=== PATIENT | female | born 1975 | race Caucasian/White ===

== ENCOUNTER → 2017-02-24 | Outpatient (REF) | payer OTHER ==
[~2017-02-24] MED LIST: ALBUTEROL INH; AMBI12.52 PO; ATARAX OR; ATIV2TAB PO; BOTO200I INJ; CELEBRE200 PO; CITRTAB15 PO; CLAR10CA3 PO; COLE1TAB PO; Cipro; DEPA500T2 PO; DRIS50002 PO; DRISDOL PO; DULO30CA PO; EFFE150C PO; FLAG500T; FLON0.05; IBUP600T OR; IMIT6KIT2 SC; INDE1CAP6 PO; LEVO75TA4 PO; METH750T OR; MOME50SP; MULTCAP PO; NAPROSY250 PO; NEUR600T PO; OMEP40CA2 PO; PERC7.5T3 PO; PRIL20CA OR; PROA1AER INH; PROBCAP4 PO; PROV100T4 PO; SEASTAB PO; SING10TA32 PO; SOLARAZE TOPICAL; SYNT50TA OR; TRAZ100T4 PO; VICO5TAB; VICO5TAB OR; VIT D 2000 PO; ZANA4TAB PO; ZOFR20TA PO; ZOLO50TA; ZOLO50TA OR; ZOLOFT50 PO; birth control
== END ==
LOC: M SFHCLERA 17:02
PROVIDERS: ATTEND Nurse Practitioner Family
DX: J02.9 Acute pharyngitis, unspecified (principal)

== ENCOUNTER 2017-06-21 16:01 | Emergency (ER) | payer OTHER ==
[~2017-06-21] VITALS: Ht 160 cm; Wt 92.7 kg
[~2017-06-21 16:01] MED LIST changes: +PERC7.5T11 PO; -PERC7.5T3 PO; -PROA1AER INH; +PROAAER10 INH; +PROV100T25 PO; -PROV100T4 PO; +TRAZ-136 PO; -TRAZ100T4 PO
[2017-06-21] MEDS ORDERED: CLEO300C2 PO (16:22)
[2017-06-21] MEDS ORDERED: CIPR500T3 PO (16:22)
[2017-06-21] MEDS ORDERED: PRED20TA PO (18:13)
[2017-06-21] MEDS ORDERED: predniSONE 20 MG TAB PO ONE (18:15)
[2017-06-21 18:26] VITALS: BP 120/62
== END 2017-06-21 18:31 | disposition home or self-care (01) ==
LOC: M ED 16:01
DX: T78.40XA Allergy, unspecified, initial encounter (principal); M79.7 Fibromyalgia; K21.9 Gastro-esophageal reflux disease without esophagitis; E03.9 Hypothyroidism, unspecified; G47.00 Insomnia, unspecified; Z87.891 Personal history of nicotine dependence

== ENCOUNTER 2018-01-25 17:22 | Emergency (ER) | payer OTHER ==
[2018-01-25 19:00] LABS: KETONE, URINE AUTO RFX NEGATIVE (NEGATIVE); LEUKOCYTE ESTERASE UR AUTO RFX NEGATIVE (NEGATIVE); MUCUS, URINE RFX SMALL (NEGATIVE); NITRITE, URINE AUTO RFX NEGATIVE (NEGATIVE); RBC, URINE AUTO RFX 2 /HPF (0-3); SPECIFIC GRAVITY UR AUTO RFX 1.025 (1.002-1.035); SQUAM EPITHELIAL CELL UR AURFX 1 /HPF (0-6); WBC, URINE AUTO RFX 5 /HPF (0-3)
[2018-01-25] MEDS: ALBUTEROL SULFATE 2.5 MG/0.5 ML INH NEB SOLN INH (20:04)
== END 2018-01-25 21:50 | disposition home or self-care (01) ==
LOC: M ED 17:22
DX: J20.9 Acute bronchitis, unspecified (principal); R10.13 Epigastric pain; R30.0 Dysuria; Z79.899 Other long term (current) drug therapy; Z88.0 Allergy status to penicillin; Z88.2 Allergy status to sulfonamides; Z88.8 Allergy status to other drugs, medicaments and biological substances; Z91.89 Other specified personal risk factors, not elsewhere classified
CPT/HCPCS: 74021

== ENCOUNTER 2018-02-13 19:03 | Emergency (ER) | payer OTHER ==
[2018-02-13 20:28] LABS: KETONE, URINE AUTO RFX TRACE mg/dL (NEGATIVE); LEUKOCYTE ESTERASE UR AUTO RFX NEGATIVE (NEGATIVE); MUCUS, URINE RFX SMALL (NEGATIVE); NITRITE, URINE AUTO RFX NEGATIVE (NEGATIVE); RBC, URINE AUTO RFX 3 /HPF (0-3); SPECIFIC GRAVITY UR AUTO RFX 1.019 (1.002-1.035); SQUAM EPITHELIAL CELL UR AURFX 0 /HPF (0-6); WBC, URINE AUTO RFX 2 /HPF (0-3)
[2018-02-13] MEDS ORDERED: ISOVUE-370 76% 100ML VIAL (Q9967) As Ordered (21:15)
[2018-02-13 21:16] LABS: BASO # 0.1 10^3/uL (0.0-0.2); BASO % 0.6 % (0.0-1.0); EOS # 0.4 10^3/uL (0.0-0.50); EOS % 3.7 % (0.0-3.0); HEMATOCRIT 38.5 % (36.0-47.0); IMMATURE GRANULOCYTE % 0.2 % (0-3.0); LYMPH # 3.9 10^3/uL (1.5-4.5); LYMPH % 34.7 % (24.0-44.0); MEAN CORPUSCULAR HEMOGLOBIN 30.4 pg (27.0-33.0); MEAN CORPUSCULAR HGB CONC 33.8 g/dl (32.0-36.5); MEAN CORPUSCULAR VOLUME 90.2 fl (80.0-96.0); MONO # 0.5 10^3/uL (0.0-0.8); MONO % 4.7 % (0.0-5.0); NEUTROPHILS # 6.2 10^3/uL (1.8-7.7); NEUTROPHILS % 56.1 % (36.0-66.0); PLATELET COUNT, AUTOMATED 310 10^3/uL (150-450); RED BLOOD COUNT 4.27 10^6/uL (4.00-5.40); RED CELL DISTRIBUTION WIDTH 14.9 % (11.5-14.5); WHITE BLOOD COUNT 11.1 10^3/uL (4.0-10.0)
[2018-02-13 21:31] LABS: INR 0.99; PROTHROMBIN TIME 13.2 SECONDS (12.4-14.5)
[2018-02-13 21:34] LABS: ALBUMIN 3.5 GM/DL (3.2-5.2); ALKALINE PHOSPHATASE 47 U/L (45-117); ALT/SGPT 35 U/L (12-78); AMYLASE 72 U/L (25-115); ANION GAP 11 MEQ/L (8-16); AST/SGOT 24 U/L (7-37); BILIRUBIN,DIRECT 0.1 MG/DL (0.0-0.2); BILIRUBIN,TOTAL 0.4 MG/DL (0.2-1.0); BLOOD UREA NITROGEN 11 MG/DL (7-18); CALCIUM LEVEL 9.2 MG/DL (8.5-10.1); CARBON DIOXIDE LEVEL 25 MEQ/L (21-32); CHLORIDE LEVEL 103 MEQ/L (98-107); CK-MB VALUE MASS 3.6 NG/ML (<3.6); CPK CREATINE PHOSPHOKINASE 123 U/L (26-192); CREATININE FOR GFR 0.63 MG/DL (0.55-1.30); GLOMERULAR FILTRATION RATE > 60.0 (>58); GLUCOSE, FASTING 80 MG/DL (70-100); LIPASE 225 U/L (73-393); MB/CK RELATIVE INDEX 2.92 (< OR =4); POTASSIUM SERUM 3.8 MEQ/L (3.5-5.1); SODIUM LEVEL 139 MEQ/L (136-145); TOTAL PROTEIN 7.4 GM/DL (6.4-8.2); TROPONIN I < 0.02 NG/ML (< 0.10)
[2018-02-13] MEDS: NS 1,000 ML IV (21:37)
[2018-02-13] MEDS: METOCLOPRAMIDE INJ 10MG/2ML VIAL (J2765) IV (21:39)
[2018-02-13] MEDS: MORPHINE 2 MG/ML 1ML SYRINGE (J2270) IV (21:39)
[2018-02-13 21:41] LABS: LACTIC ACID SEPSIS PROTOCOL 2.4 MMOL/L (0.4-2.0)
[2018-02-14] MEDS: GI COCKTAIL 50ML BTL(HYOSCYAMINE/MAALOX/LIDOCAINE VISCOUS)(1:3:1) PO (00:38)
[2018-02-14 01:01] LABS: LACTIC ACID SEPSIS PROTOCOL 1.5 MMOL/L (0.4-2.0)
[2018-02-14 01:02] LABS: CK-MB VALUE MASS 2.3 NG/ML (<3.6); CPK CREATINE PHOSPHOKINASE 92 U/L (26-192); TROPONIN I < 0.02 NG/ML (< 0.10)
== END 2018-02-14 02:06 | disposition home or self-care (01) ==
LOC: M ED 02-14 02:06
DX: K29.70 Gastritis, unspecified, without bleeding (principal); K21.9 Gastro-esophageal reflux disease without esophagitis; E03.9 Hypothyroidism, unspecified; M79.7 Fibromyalgia; G43.909 Migraine, unspecified, not intractable, without status migrainosus; R53.82 Chronic fatigue, unspecified; Z79.899 Other long term (current) drug therapy; Z79.890 Hormone replacement therapy; Z79.3 Long term (current) use of hormonal contraceptives; Z88.0 Allergy status to penicillin; Z88.2 Allergy status to sulfonamides; Z88.8 Allergy status to other drugs, medicaments and biological substances; Z87.891 Personal history of nicotine dependence
CPT/HCPCS: Q9967

== ENCOUNTER → 2018-03-25 | Outpatient (CLI) | payer OTHER ==
[2018-03-27 08:22] LABS: CERULOPLASMIN 62.4 mg/dL (19.0-39.0)
== END ==
LOC: M LAB 12:48
DX: E83.01 Wilson's disease (principal)
CPT/HCPCS: 82390

== ENCOUNTER → 2018-07-13 | Outpatient (REF) | payer OTHER | LOC: M LAB REF 16:30 | DX: R79.0 Abnormal level of blood mineral (principal) ==

== ENCOUNTER → 2018-08-19 | Outpatient (REF) | payer OTHER ==
[2018-08-19 17:58] LABS: GAMMA GLUTAMYLTRANSPEPTIDASE 34 U/L (5-55)
[2018-08-19 17:58] LABS: ALKALINE PHOSPHATASE 47 U/L (45-117); BILIRUBIN,DIRECT < 0.1 MG/DL (0.0-0.2); BILIRUBIN,TOTAL 0.4 MG/DL (0.2-1.0); IMMUNOGLOBULIN A 200 MG/DL (70-400); IMMUNOGLOBULIN G 707 MG/DL (681-1648); IMMUNOGLOBULIN M 82 MG/DL (40-230)
[2018-08-19 18:18] LABS: REASON FOR REVIEW RBC MORPHOLOGY; SLIDE REVIEW Report; SOURCE PERIPHERAL SMEAR
[2018-08-22 00:56] LABS: ANTI-SMOOTH MUSCLE ANTIBODY 4 Units (0-19)
[2018-08-22 00:56] LABS: BILE ACIDS FRACTIONATED 5.8 umol/L (4.7-24.5)
[2018-08-23 00:29] LABS: ANTI-MITOCHONDRIAL ANTIBODY 2.1 Units (0.0-20.0)
== END ==
LOC: M SFHCPLAZ 15:42
DX: L57.8 Other skin changes due to chronic exposure to nonionizing radiation (principal)
CPT/HCPCS: 82247

== ENCOUNTER → 2018-10-21 | Outpatient (CLI) | payer OTHER ==
[~2018-10-21] MED LIST changes: +CARA1TAB6 PO; +CHLOR50TA PO; +CIPR500T3 PO; +CLEO300C2 PO; +DICY10CA13 PO; -DRIS50002 PO; +DRIS50003 PO; -EFFE150C PO; +EFFE150C2 PO; +EQL50TAB4 PO; +ERYTOIN8 TOP; +FLAX100012 PO; +HYDR200T3 PO; +INDE160C5 PO; -INDE1CAP6 PO; +PRED20TA PO; +PROT1TAB2 PO; +SIME1CAP PO; -TRAZ-136 PO; +TRAZ-163 PO; -ZOFR20TA PO; +ZOFR4TAB16 PO; +[UNRECOGNIZED DRUG - CODE] PO; +plaquinel PO
[2018-10-21 15:13] LABS: ALBUMIN 3.6 GM/DL (3.2-5.2); BILIRUBIN,DIRECT 0.1 MG/DL (0.0-0.2); BILIRUBIN,TOTAL 0.4 MG/DL (0.2-1.0); C REACTIVE PROTEIN QUANTITATIV 0.65 MG/DL (0.00-0.30); TOTAL PROTEIN 7.1 GM/DL (6.4-8.2)
== END ==
LOC: M LAB 14:02
PROVIDERS: ATTEND Internal Medicine Gastroenterology
DX: R74.8 Abnormal levels of other serum enzymes (principal)

== ENCOUNTER 2018-11-25 18:45 | Emergency (ER) | payer OTHER ==
[~2018-11-25] VITALS: Ht 160 cm; Wt 96.4 kg
[2018-11-25] MEDS ORDERED: LIDO1CRE2 TOP (21:13)
[2018-11-25 21:19] VITALS: BP 131/87
[2018-11-25] MEDS ORDERED: PERC5TAB12 PO (22:11)
[2018-11-25] MEDS ORDERED: OXYCODONE/APAP 5MG/325MG(BULK FOR ED) 1 TABLET PO ONE (22:15)
== END 2018-11-25 22:32 | disposition home or self-care (01) ==
LOC: M ED 18:45
DX: G89.4 Chronic pain syndrome (principal); M79.7 Fibromyalgia; Z88.0 Allergy status to penicillin; Z88.8 Allergy status to other drugs, medicaments and biological substances; Z88.2 Allergy status to sulfonamides; Z79.899 Other long term (current) drug therapy

== ENCOUNTER → 2018-12-22 | Outpatient (CLI) | payer OTHER ==
[~2018-12-22] MED LIST changes: +LIDO1CRE2 TOP; +PERC5TAB12 PO
[2018-12-22 19:44] LABS: ALBUMIN 3.4 GM/DL (3.2-5.2); ALT/SGPT 42 U/L (12-78); BILIRUBIN,TOTAL 0.3 MG/DL (0.2-1.0); BLOOD UREA NITROGEN 13 MG/DL (7-18); C REACTIVE PROTEIN QUANTITATIV 0.89 MG/DL (0.00-0.30); CARBON DIOXIDE LEVEL 29 MEQ/L (21-32); CHLORIDE LEVEL 101 MEQ/L (98-107); CREATININE FOR GFR 0.49 MG/DL (0.55-1.30); GLOMERULAR FILTRATION RATE > 60.0 (>58); GLUCOSE, FASTING 81 MG/DL (70-100); POTASSIUM SERUM 4.3 MEQ/L (3.5-5.1); RHEUMATOID FACTOR QUANT < 10.0 IU/ML (<15.0); SODIUM LEVEL 135 MEQ/L (136-145); TOTAL PROTEIN 6.5 GM/DL (6.4-8.2)
--- NOTE | 2018-12-23 03:43 | REP ---
Clinical: Arthritis. Technique: AP, lateral, bilateral oblique views of the right and left hand. Findings: Right hand demonstrates generalized age-related changes. There is no evidence for acute fracture dislocation. No significant osteoarthritic or inflammatory arthritic degenerative changes are identified. Left hand demonstrates generalized age-related changes. There is no evidence for acute fracture dislocation. No significant osteoarthritic or inflammatory arthritic degenerative changes are identified. Impression: Symmetric age-appropriate examination. No overt arthritic changes are appreciated. Electronically Signed by Eliud Menjivar MD 12/23/2018 03:34 A
== END ==
LOC: M WUC 15:36
PROVIDERS: ATTEND Internal Medicine Rheumatology
DX: M19.90 Unspecified osteoarthritis, unspecified site (principal)

== ENCOUNTER → 2019-01-15 | Outpatient (REF) | payer OTHER ==
[~2019-01-15] MED LIST changes: -DULO30CA PO; +DULO30CA9 PO; -EQL50TAB4 PO; +ZINC1TAB2 PO
[2019-01-15 13:32] LABS: ALBUMIN 3.6 GM/DL (3.2-5.2); ALT/SGPT 53 U/L (12-78); BILIRUBIN,TOTAL 0.4 MG/DL (0.2-1.0); BLOOD UREA NITROGEN 12 MG/DL (7-18); CALCIUM LEVEL 9.5 MG/DL (8.5-10.1); CARBON DIOXIDE LEVEL 28 MEQ/L (21-32); CHLORIDE LEVEL 103 MEQ/L (98-107); GLOMERULAR FILTRATION RATE > 60.0 (>58); GLUCOSE, FASTING 96 MG/DL (70-100); POTASSIUM SERUM 4.4 MEQ/L (3.5-5.1); SODIUM LEVEL 138 MEQ/L (136-145); THYROID STIMULATING HORMONE 0.816 uIU/ML (0.358-3.740); TOTAL PROTEIN 7.2 GM/DL (6.4-8.2)
[2019-01-15 13:33] LABS: FOLLICLE STIMULATING HORMONE 8.9 mIU/mL; LUTEINIZING HORMONE 11.7 mIU/mL; TESTOSTERONE 31 NG/DL (14-76); TOTAL 25(OH) VITAMIN D 18.9 NG/ML (30.0-100.0)
== END ==
LOC: M SFHCPLAZ 10:25
PROVIDERS: ATTEND Nurse Practitioner Adult Health
DX: M79.7 Fibromyalgia (principal); E55.9 Vitamin D deficiency, unspecified; E03.9 Hypothyroidism, unspecified; N91.2 Amenorrhea, unspecified

== ENCOUNTER 2019-01-31 14:46 | Emergency (ER) | payer OTHER ==
[~2019-01-31] VITALS: Ht 160 cm; Wt 96.4 kg
[2019-01-31] MEDS ORDERED: NS 1,000 ML IV ONE (15:15)
[2019-01-31] MEDS ORDERED: ONDANSETRON 4MG/2ML VIAL (J2405) IV ONE (15:30)
[2019-01-31] MEDS ORDERED: MORPHINE 2 MG/ML 1ML SYRINGE (J2270) IV ONE (15:30)
[2019-01-31 16:00] LABS: BASO # 0.1 10^3/uL (0.0-0.2); BASO % 0.7 % (0.0-1.0); EOS # 0.6 10^3/uL (0.0-0.50); HEMATOCRIT 36.7 % (36.0-47.0); HEMOGLOBIN 12.4 g/dl (12.0-15.5); LYMPH # 2.3 10^3/uL (1.5-4.5); LYMPH % 20.6 % (24.0-44.0); MEAN CORPUSCULAR HGB CONC 33.8 g/dl (32.0-36.5); MEAN CORPUSCULAR VOLUME 88.9 fl (80.0-96.0); MONO # 0.8 10^3/uL (0.0-0.8); MONO % 6.7 % (0.0-5.0); NEUTROPHILS # 7.6 10^3/uL (1.8-7.7); NEUTROPHILS % 66.6 % (36.0-66.0); PLATELET COUNT, AUTOMATED 298 10^3/uL (150-450); RED BLOOD COUNT 4.13 10^6/uL (4.00-5.40); WHITE BLOOD COUNT 11.3 10^3/uL (4.0-10.0)
[2019-01-31 16:10] LABS: HCG, SERUM QUALITATIVE NEGATIVE (NEGATIVE)
[2019-01-31 16:19] LABS: INR 0.96; PARTIAL THROMBOPLASTIN TIME 23.4 SECONDS (25.4-37.6); PROTHROMBIN TIME 12.9 SECONDS (12.1-14.4)
[2019-01-31 16:29] LABS: ALBUMIN 3.8 GM/DL (3.2-5.2); ALT/SGPT 49 U/L (12-78); BILIRUBIN,DIRECT < 0.1 MG/DL (0.0-0.2); BILIRUBIN,TOTAL 0.6 MG/DL (0.2-1.0); BLOOD UREA NITROGEN 11 MG/DL (7-18); CARBON DIOXIDE LEVEL 22 MEQ/L (21-32); CHLORIDE LEVEL 105 MEQ/L (98-107); CREATININE FOR GFR 0.74 MG/DL (0.55-1.30); GLOMERULAR FILTRATION RATE > 60.0 (>58); GLUCOSE, FASTING 81 MG/DL (70-100); POTASSIUM SERUM 4.8 MEQ/L (3.5-5.1); SODIUM LEVEL 139 MEQ/L (136-145); TOTAL PROTEIN 7.2 GM/DL (6.4-8.2)
[2019-01-31] MEDS ORDERED: MORPHINE 2 MG/ML 1ML SYRINGE (J2270) IV PRN (17:00)
[2019-01-31 17:17] LABS: CHLAMYDIA DNA AMPLIFICATION NEGATIVE (NEGATIVE); GC DNA AMPLIFICATION NEGATIVE (NEGATIVE)
[2019-01-31] MEDS ORDERED: IBUP-1022 PO (18:57)
[2019-01-31 19:29] VITALS: BP 138/86
--- NOTE | 2019-01-31 19:31 | REPVR ---
EXAM: US Pelvis Complete, Transabdominal and US Pelvis, Transvaginal EXAM DATE/TIME: 01/31/2019 6:26 PM CLINICAL HISTORY: 44 years old, female; Signs and symptoms; Menstruation abnormalities; Excessive menstruation; With irregular cycle; Prior surgery; Surgery date: 6+ months; Surgery type: S/P RT salpingoophorectomy 2011; Additional info: Abnormal vag bleeding TECHNIQUE: Imaging protocol: Real-time transabdominal and transvaginal pelvic ultrasound (complete) with image documentation. Transvaginal imaging was used for better evaluation of the endometrium and adnexa. COMPARISON: US PELVIC NON-OB COMPLETE 07/06/2012 10:46 PM FINDINGS: Uterus/cervix: The uterus is anteverted and measures 12.9 cm long by 5.2 cm AP by 6.8 cm transverse. No focal myometrial mass is identified. The endometrium is slightly heterogeneous and thickened, measuring 2.4 cm. The endometrial/myometrial interface is slightly ill-defined. Adenomyosis is not excluded. Endometrial/myometrial cyst measuring 3 mm within the lower uterine segment, seen on series "cine 1". Right adnexa: The right ovary has been surgically removed. Left adnexa: The left ovary measures 4.0 cm x 1.8 cm x 1.9 cm. Color Doppler blood flow and spectral venous and arterial waveforms within the left ovary are documented. There are a few tiny follicles and a simple cyst measuring 2.2 cm within the left ovary. There is a hypoechoic nodule with enhanced through sound transmission and peripheral rim of color Doppler blood flow measuring 14 mm within the left ovary, likely representing an involuting cyst. Free fluid: None. Bladder: Incompletely distended and incompletely evaluated. IMPRESSION: Heterogeneous thickened endometrial stripe measuring 2.4 cm. Gynecologic followup is recommended. Either followup pelvic ultrasound in 6-8 weeks or MRI of the uterus is recommended as clinically indicated. Electronically signed by: Fly Ortega On 01/31/2019 19:30:26 PM
--- NOTE | 2019-02-02 12:12 | ED PDOC ---
Post-Departure Follow-Up dr bruce faxed formal report of pelvic us for fu Torsten Bradford MD Feb 02, 2019 12:12
== END 2019-01-31 19:32 | disposition home or self-care (01) ==
LOC: M ED 14:46
DX: N93.8 Other specified abnormal uterine and vaginal bleeding (principal); M79.7 Fibromyalgia; E07.9 Disorder of thyroid, unspecified; K21.9 Gastro-esophageal reflux disease without esophagitis; G43.909 Migraine, unspecified, not intractable, without status migrainosus; Z79.899 Other long term (current) drug therapy; Z88.0 Allergy status to penicillin; Z88.1 Allergy status to other antibiotic agents; Z88.8 Allergy status to other drugs, medicaments and biological substances; Z91.018 Allergy to other foods
CPT/HCPCS: 76830; 76856; 80048; 80076; 83605; 84703; 85025; 85610; 85730; 86850; 86900; 86901; 87040; 87210; 87491; 87591; 93041; 93976; 94760; 96361; 96374; 96375; 96376; 99285; J2270; J2405

== ENCOUNTER → 2019-02-03 | Outpatient (REF) | payer OTHER ==
[~2019-02-03] MED LIST changes: +IBUP-1022 PO
== END ==
LOC: M LAB REF 13:02
PROVIDERS: ATTEND Specialist
DX: N92.0 Excessive and frequent menstruation with regular cycle (principal)

== ENCOUNTER 2019-02-07 21:55 | Emergency (ER) | payer OTHER ==
[~2019-02-07] VITALS: Ht 157.5 cm; Wt 97.7 kg
[2019-02-07] MEDS ORDERED: NS 1,000 ML IV ONE ×2 (22:30→23:30)
[2019-02-07 22:35] LABS: BASO # 0.1 10^3/uL (0.0-0.2); EOS # 0.5 10^3/uL (0.0-0.50); EOS % 7.3 % (0.0-3.0); HEMATOCRIT 35.5 % (36.0-47.0); HEMOGLOBIN 11.8 g/dl (12.0-15.5); LYMPH # 2.7 10^3/uL (1.5-4.5); MEAN CORPUSCULAR HEMOGLOBIN 29.3 pg (27.0-33.0); MEAN CORPUSCULAR HGB CONC 33.2 g/dl (32.0-36.5); MEAN CORPUSCULAR VOLUME 88.1 fl (80.0-96.0); MONO # 0.5 10^3/uL (0.0-0.8); MONO % 7.4 % (0.0-5.0); NEUTROPHILS # 3.2 10^3/uL (1.8-7.7); NEUTROPHILS % 45.9 % (36.0-66.0); PLATELET COUNT, AUTOMATED 332 10^3/uL (150-450); RED BLOOD COUNT 4.03 10^6/uL (4.00-5.40)
[2019-02-07 23:00] LABS: BLOOD UREA NITROGEN 11 MG/DL (7-18); CALCIUM LEVEL 8.8 MG/DL (8.5-10.1); CARBON DIOXIDE LEVEL 26 MEQ/L (21-32); CHLORIDE LEVEL 103 MEQ/L (98-107); CPK CREATINE PHOSPHOKINASE 163 U/L (26-192); ETHYL ALCOHOL (ETHANOL) < 0.003 % (0.000-0.010); FREE THYROXINE INDEX 3.9 % (1.3-4.8); GLOMERULAR FILTRATION RATE > 60.0 (>58); GLUCOSE, FASTING 144 MG/DL (70-100); POTASSIUM SERUM 3.7 MEQ/L (3.5-5.1); SODIUM LEVEL 137 MEQ/L (136-145); T UPTAKE 33 % (30-39); THYROID STIMULATING HORMONE 0.885 uIU/ML (0.358-3.740); THYROXINE (T4) 11.9 UG/DL (4.5-12.0)
[2019-02-07] MEDS ORDERED: ISOVUE-370 76% 100ML VIAL (Q9967) As Ordered ONE (23:36)
--- NOTE | 2019-02-08 00:28 | REPVR ---
EXAM: CT Head Without Contrast EXAM DATE/TIME: 02/07/2019 12:00 AM CLINICAL HISTORY: 44 years old, female; Signs and symptoms; Altered mental status/memory loss; Confusion or disorientation; Additional info: AMS TECHNIQUE: Imaging protocol: Axial computed tomography images of the head/brain without contrast. Radiation optimization: All CT scans at this facility use at least one of these dose optimization techniques: automated exposure control; mA and/or kV adjustment per patient size (includes targeted exams where dose is matched to clinical indication); or iterative reconstruction. COMPARISON: No relevant prior studies available. FINDINGS: Brain: No intracranial mass, mass effect or midline shift. No acute intracranial hemorrhage. No CT evidence of acute cortical infarct. Ventricles: Ventricles, cisterns, and sulci are normal in size for age. Bones/joints: No calvarial fracture or destructive process. Sinuses: Imaged paranasal sinuses are clear. Mastoid air cells: Mastoid air cells are normally aerated. Orbits: Imaged orbits are unremarkable. Soft tissues: No focal extracranial soft tissue swelling. IMPRESSION: No acute or concerning focal intracranial abnormality. Electronically signed by: Philippe Juarez On 02/08/2019 00:28:07 AM
--- NOTE | 2019-02-08 00:33 | REPVR ---
EXAM: CT Angiography Chest With Contrast EXAM DATE/TIME: 02/07/2019 12:00 AM CLINICAL HISTORY: 44 years old, female; Signs and symptoms; Dyspnea; Additional info: Dysp TECHNIQUE: Imaging protocol: Axial computed tomographic angiography images of the chest with intravenous contrast using CT angiography protocol. Coronal and sagittal reformatted images were created and reviewed. 3D rendering: MIP reconstructed images were created and reviewed. Radiation optimization: All CT scans at this facility use at least one of these dose optimization techniques: automated exposure control; mA and/or kV adjustment per patient size (includes targeted exams where dose is matched to clinical indication); or iterative reconstruction. Contrast material: ISOVUE 370; Contrast volume: 100 ml; Contrast route: IV COMPARISON: No relevant prior studies available. FINDINGS: No focal pulmonary artery filling defect to suggest acute pulmonary embolus. No thoracic aortic aneurysm or dissection. No enlarged mediastinal lymph nodes. No pleural effusion or pneumothorax. Pulmonary vascular/interstitial pattern does not suggest active pulmonary edema. No suspicious lung mass or air space process. No central endobronchial lesion. Limited visualization of upper abdomen shows no concerning finding. Bony structures show no acute fracture or destructive process. IMPRESSION: No evidence of acute pulmonary embolus. No other acute or concerning focal intrathoracic abnormality. Electronically signed by: Philippe Juarez On 02/08/2019 00:33:00 AM
--- NOTE | 2019-02-08 00:35 | REPVR ---
EXAM: CT Abdomen and Pelvis With Contrast EXAM DATE/TIME: 02/07/2019 12:00 AM CLINICAL HISTORY: 44 years old, female; Signs and symptoms; Other: Dyspnea; Additional info: Dysp TECHNIQUE: Imaging protocol: Axial computed tomography images of the abdomen and pelvis with intravenous contrast. Coronal and sagittal reformatted images were created and reviewed. Radiation optimization: All CT scans at this facility use at least one of these dose optimization techniques: automated exposure control; mA and/or kV adjustment per patient size (includes targeted exams where dose is matched to clinical indication); or iterative reconstruction. Contrast material: ISOVUE 370; Contrast volume: 100 ml; Contrast route: IV; COMPARISON: CT ABD/PEL W/IV CONTRAST ONLY 02/13/2018 10:20 PM FINDINGS: ABDOMEN: Liver: Liver appears normal with no focal abnormality. Gallbladder and bile ducts: Gallbladder is surgically absent. Pancreas: Pancreas appears normal. No focal mass or peripancreatic inflammation. Spleen: Spleen appears homogeneous without focal mass. Adrenals: Adrenal glands are normal in appearance. Kidneys and ureters: Kidneys appear normal, with no stone, solid mass or hydronephrosis. Stomach and bowel: No evidence of small bowel obstruction. No evidence of acute diverticulitis. Appendix: Normal caliber appendix is identified, with no adjacent inflammation. PELVIS: Bladder: Bladder appears normal. Reproductive: Unremarkable as visualized. ABDOMEN and PELVIS: Intraperitoneal space: No pneumoperitoneum. No abnormal pelvic mass. Bones/joints: Bony structures show no acute fracture or destructive process. Soft tissues: No abdominal wall hernia. Vasculature: Main portal and splenic veins enhance normally. No aortic aneurysm. Lymph nodes: No enlarged lymph nodes. IMPRESSION: No acute or concerning focal abdominal or pelvic process to explain acute abdominal pain Electronically signed by: Philippe Juarez On 02/08/2019 00:35:47 AM
[2019-02-08 01:11] LABS: APPEARANCE, URINE CLEAR (CLEAR); BACTERIA, URINE AUTO NEGATIVE (NEGATIVE); BILIRUBIN, URINE AUTO NEGATIVE (NEGATIVE); BLOOD, URINE BLOOD NEGATIVE (NEGATIVE); COLOR, URINE YELLOW (YELLOW); GLUCOSE, URINE (UA) AUTO NEGATIVE (NEGATIVE); KETONE, URINE AUTO NEGATIVE (NEGATIVE); LEUKOCYTE ESTERASE, URINE AUTO NEGATIVE (NEGATIVE); NITRITE, URINE AUTO NEGATIVE (NEGATIVE); PROTEIN, URINE AUTO NEGATIVE (NEGATIVE); RBC, URINE AUTO 1 /HPF (0-3); SPECIFIC GRAVITY URINE AUTO 1.026 (1.002-1.035); SQUAMOUS EPITHELIAL CELL UR AU 0 /HPF (0-6); UROBILINOGEN, URINE AUTO 0.2 mg/dL (0.0-2.0); WBC, URINE AUTO 3 /HPF (0-3)
[2019-02-08 01:31] LABS: AMPHETAMINES LEVEL URINE NEGATIVE (NEGATIVE); BARBITURATES URINE NEGATIVE (NEGATIVE); BENZODIAZEPINES URINE NEGATIVE (NEGATIVE); CANNABINOIDS URINE POSITIVE (NEGATIVE); COCAINE METABOLITE URINE NEGATIVE (NEGATIVE); METHADONE URINE NEGATIVE (NEGATIVE); OPIATES URINE NEGATIVE (NEGATIVE); PHENCYCLIDINE URINE NEGATIVE (NEGATIVE)
[2019-02-08] MEDS ORDERED: IBUP1TAB6 PO (02:24)
[2019-02-08] MEDS ORDERED: LEVO100T54 PO (02:24)
[2019-02-08] MEDS ORDERED: PROP160C PO (02:28)
[2019-02-08] MEDS ORDERED: MICR1TAB5 PO (02:29)
[2019-02-08 02:45] VITALS: BP 133/65
[2019-02-08] MEDS ORDERED: PROPRANOLOL 10 MG TAB PO ONE (02:45)
[2019-02-08] MEDS ORDERED: NS 1,000 ML IV ONE (04:15)
[2019-02-08] MEDS ORDERED: KETOROLAC 30 MG/ML VIAL (J1885) IV ONE (04:15)
[2019-02-08 07:54] VITALS: BP 132/79
--- NOTE | 2019-02-08 21:13 | ECGEPIP ---
Stationary ECG Study [facility] - ED Test Date: 2019-02-07 Pat Name: KATELYNN MULLEN Department: Room: - Gender: F Periodontist: JT : 1975 Requested By: ESTRELLA HERNANDEZ Order Number: [id number] Reading MD: Katelynn Jiménez Measurements Intervals [place] Rate: 126 P: 25 KS: 132 QRS: 31 QRSD: 86 T: -4 QT: 336 QTc: 487 Interpretive Statements SINUS TACHYCARDIA NONSPECIFIC ST & T-WAVE ABNORMALITY ABNORMAL RHYTHM ECG INCREASED RATE 02/13/18 Electronically Signed On 02-08-2019 21:13:11 EDT by Katelynn Jiménez
== END 2019-02-08 07:57 | disposition left against medical advice (07) ==
LOC: M ED 21:55
DX: E86.9 Volume depletion, unspecified (principal); F63.3 Trichotillomania; R00.0 Tachycardia, unspecified; R94.31 Abnormal electrocardiogram [ECG] [EKG]; E03.9 Hypothyroidism, unspecified; K21.9 Gastro-esophageal reflux disease without esophagitis; K58.9 Irritable bowel syndrome, unspecified; G43.909 Migraine, unspecified, not intractable, without status migrainosus; F41.9 Anxiety disorder, unspecified; F32.9 Major depressive disorder, single episode, unspecified; M79.7 Fibromyalgia; G89.4 Chronic pain syndrome; R53.82 Chronic fatigue, unspecified; Z79.899 Other long term (current) drug therapy; Z88.2 Allergy status to sulfonamides; Z88.0 Allergy status to penicillin; Z88.1 Allergy status to other antibiotic agents; Z88.8 Allergy status to other drugs, medicaments and biological substances; Z91.89 Other specified personal risk factors, not elsewhere classified
CPT/HCPCS: 70450; 71275; 74177; 80048; 80307; 81001; 82550; 83605; 84436; 84443; 84479; 85025; 87040; 87086; 93005; 96360; 96361; 96375; 99285; G0480; J1885; Q9967

== ENCOUNTER → 2019-02-18 | Outpatient (CLI) | payer OTHER ==
[~2019-02-18] MED LIST changes: +IBUP1TAB6 PO; +LEVO100T54 PO; +MICR1TAB5 PO; +PROP160C PO
== END ==
LOC: M SMT 09:39
PROVIDERS: ATTEND Specialist
DX: Z12.9 Encounter for screening for malignant neoplasm, site unspecified (principal)

== ENCOUNTER → 2019-02-19 | Outpatient (REF) | payer OTHER ==
[2019-02-19 16:37] LABS: BASO # 0.1 10^3/uL (0.0-0.2); BASO % 1.2 % (0.0-1.0); EOS # 0.6 10^3/uL (0.0-0.50); EOS % 6.8 % (0.0-3.0); HEMATOCRIT 33.6 % (36.0-47.0); HEMOGLOBIN 10.7 g/dl (12.0-15.5); LYMPH # 3.2 10^3/uL (1.5-4.5); LYMPH % 36.5 % (24.0-44.0); MEAN CORPUSCULAR HEMOGLOBIN 28.5 pg (27.0-33.0); MEAN CORPUSCULAR HGB CONC 31.8 g/dl (32.0-36.5); MEAN CORPUSCULAR VOLUME 89.4 fl (80.0-96.0); MONO # 0.6 10^3/uL (0.0-0.8); MONO % 7.2 % (0.0-5.0); NEUTROPHILS # 4.1 10^3/uL (1.8-7.7); NEUTROPHILS % 48.1 % (36.0-66.0); PLATELET COUNT, AUTOMATED 330 10^3/uL (150-450); RED BLOOD COUNT 3.76 10^6/uL (4.00-5.40); WHITE BLOOD COUNT 8.6 10^3/uL (4.0-10.0)
[2019-02-19 20:51] LABS: ALBUMIN 3.9 GM/DL (3.2-5.2); ALT/SGPT 41 U/L (12-78); BILIRUBIN,TOTAL 0.4 MG/DL (0.2-1.0); BLOOD UREA NITROGEN 8 MG/DL (7-18); CARBON DIOXIDE LEVEL 27 MEQ/L (21-32); CHLORIDE LEVEL 104 MEQ/L (98-107); CREATININE FOR GFR 0.62 MG/DL (0.55-1.30); GLOMERULAR FILTRATION RATE > 60.0 (>58); GLUCOSE, FASTING 88 MG/DL (70-100); IMMUNOGLOBULIN G 706 MG/DL (681-1648); IMMUNOGLOBULIN M 71.3 MG/DL (40-230); POTASSIUM SERUM 4.3 MEQ/L (3.5-5.1); SODIUM LEVEL 137 MEQ/L (136-145); TOTAL PROTEIN 7.1 GM/DL (6.4-8.2)
[2019-02-19 20:52] LABS: IMMUNOGLOBULIN E 6.2 IU/ML (<100)
== END ==
LOC: M SFHCPLAZ 13:24
PROVIDERS: ATTEND Internal Medicine Infectious Disease
DX: D72.1 Eosinophilia (principal)

== ENCOUNTER → 2019-02-20 | Outpatient (REF) | payer OTHER | LOC: M SFHCPLAZ 15:15 | PROVIDERS: ATTEND Internal Medicine Infectious Disease | DX: D72.1 Eosinophilia (principal) ==

== ENCOUNTER → 2019-03-30 | Outpatient (CLI) | payer OTHER ==
[~2019-03-30] MED LIST changes: +FERR325T81 PO; +VITA500045 PO
--- NOTE | 2019-03-30 14:25 | REP ---
Pelvic ultrasound including transabdominal, endovaginal and Doppler ultrasound assessment: Comparison is 01/31/2019. The bladder is suboptimally distended. The uterus is anteverted and slightly enlarged measuring 9.9 x 4.8 x 5.6 cm. The myometrium has a heterogeneous appearance. There is acoustic shadowing arising from the myometrial junctional zone . This is suggestive of adenosis. MRI might be considered for further evaluation is finding. The endometrium is normal thickness measuring 10 mm . The marked endometrial thickness measuring up to 24 mm on the prior study has resolved. Right ovary: There is a right nephrectomy. Left ovary: The left ovary measures 2.7 x 2.1 x 2.6 cm. There is a 1.1 by 1.3 x 1.4 centimeter dominant follicle. There is left ovarian vascular flow with the parenchymal artery Doppler resistive index measuring 0.72. There is no free fluid in the pelvis. Impression: Right nephrectomy. The endometrium is normal thickness. On the previous study there was marked endometrial thickening. This has resolved. There is, there is acoustic shadowing arising from the uterine junctional zone, suggestive of adenosis. This could be further evaluated with MRI if felt clinically indicated. Electronically Signed by Yuan Cline MD 03/30/2019 02:17 P
== END ==
LOC: M RAD 13:08
PROVIDERS: ATTEND Specialist
DX: N85.4 Malposition of uterus (principal); Z90.5 Acquired absence of kidney

== ENCOUNTER 2019-04-07 16:29 | Emergency (ER) | payer OTHER ==
[~2019-04-07] VITALS: Ht 160 cm; Wt 91.0 kg
[2019-04-07 20:59] VITALS: BP 134/89
[2019-04-07 21:37] LABS: CHLAMYDIA DNA AMPLIFICATION NEGATIVE (NEGATIVE); GC DNA AMPLIFICATION NEGATIVE (NEGATIVE)
== END 2019-04-07 21:14 | disposition home or self-care (01) ==
LOC: M ED 18:11
DX: K62.89 Other specified diseases of anus and rectum (principal); R10.2 Pelvic and perineal pain; K58.9 Irritable bowel syndrome, unspecified; E03.9 Hypothyroidism, unspecified; M79.7 Fibromyalgia; F33.9 Major depressive disorder, recurrent, unspecified; F41.9 Anxiety disorder, unspecified; G43.909 Migraine, unspecified, not intractable, without status migrainosus; K22.70 Barrett's esophagus without dysplasia; Z88.1 Allergy status to other antibiotic agents; Z79.899 Other long term (current) drug therapy; Z88.2 Allergy status to sulfonamides; Z88.8 Allergy status to other drugs, medicaments and biological substances

== ENCOUNTER 2019-04-13 10:14 | Day surgery (SDC) | payer OTHER ==
[~2019-04-13] VITALS: Ht 160 cm; Wt 88.9 kg
[~2019-04-13 10:14] MED LIST changes: +NS 1,000 ML IV ONE
[2019-04-13] MEDS ORDERED: fentaNYL 100 MCG/2 ML INJECTION (J3010) As Ordered ONE (11:51)
[2019-04-13] MEDS ORDERED: LIDOCAINE 2% INJ 100 MG/5 ML SDV (FOR ANES.) As Ordered ONE (12:07)
[2019-04-13] MEDS ORDERED: PROPOFOL 200 MG/20 ML VIAL As Ordered ONE ×2 (12:07→12:20)
--- NOTE | 2019-04-13 12:46 | ROOR ---
Patient Name: Katelynn Goodrich Procedure Date: 04/13/2019 11:48 AM Date of : 1975 Age: 44 Room: [facility] Gender: Female Note Status: Finalized Procedure: Upper GI endoscopy Indications: Dyspepsia, Dysphagia Providers: Shawn Smallwood MD Referring MD: Sheridan EDUARDO NP Requesting Provider: Medicines: Monitored Anesthesia Care Complications: No immediate complications. Procedure: Pre-Anesthesia Assessment: - Prior to the procedure, a History and Physical was performed, and patient medications and allergies were reviewed. The patient is competent. The risks and benefits of the procedure and the sedation options and risks were discussed with the patient. All questions were answered and informed consent was obtained. Patient identification and proposed procedure were verified by the physician, the nurse and the anesthesiologist in the procedure room. Mental Status Examination: alert and oriented. Airway Examination: normal oropharyngeal airway and neck mobility. Respiratory Examination: clear to auscultation. CV Examination: normal. Prophylactic Antibiotics: The patient does not require prophylactic antibiotics. Prior Anticoagulants: The patient has taken no previous anticoagulant or antiplatelet agents. ASA Grade Assessment: II - A patient with mild systemic disease. After reviewing the risks and benefits, the patient was deemed in satisfactory condition to undergo the procedure. The anesthesia plan was to use monitored anesthesia care (MAC). Immediately prior to administration of medications, the patient was re-assessed for adequacy to receive sedatives. The heart rate, respiratory rate, oxygen saturations, blood pressure, adequacy of pulmonary ventilation, and response to care were monitored throughout the procedure. The physical status of the patient was re-assessed after the procedure. The Endoscope was introduced through the mouth, and advanced to the second part of duodenum. The upper GI endoscopy was accomplished without difficulty. The patient tolerated the procedure well. Findings: The Z-line was irregular and was found 38 cm from the incisors. Biopsies were obtained from the proximal and distal esophagus with cold forceps for histology of suspected eosinophilic esophagitis. Verification of patient identification for the specimen was done by the physician and nurse using the patient's name, date and medical record number. Estimated blood loss was minimal. No gross lesions were noted in the entire esophagus. Scattered mild inflammation characterized by erythema, friability and granularity was found in the gastric antrum. Biopsies were taken with a cold forceps for Helicobacter pylori testing. The duodenal bulb and second portion of the duodenum were normal. Biopsies for histology were taken with a cold forceps for evaluation of celiac disease. Impression: - Z-line irregular, 38 cm from the incisors. Biopsied. - No gross lesions in esophagus. - Gastritis. Biopsied. - Normal duodenal bulb and second portion of the duodenum. Biopsied. Recommendation: - Patient has a contact number available for emergencies. The signs and symptoms of potential delayed complications were discussed with the patient. Return to normal activities tomorrow. Written discharge instructions were provided to the patient. - Resume previous diet. - Continue present medications. - Await pathology results. - Telephone GI clinic for pathology results in 2 weeks. - Return to primary care physician. Shawn Smallwood MD Shawn Smallwood MD 04/13/2019 12:46:08 PM Electronically signed by Shawn Smallwood MD Number of Addenda: 0 Note Initiated On: 04/13/2019 11:48 AM Estimated Blood Loss: Estimated blood loss was minimal.
--- NOTE | 2019-04-13 13:16 | ROOR ---
Patient Name: Katelynn Goodrich Procedure Date: 04/13/2019 11:48 AM Date of : 1975 Age: 44 Room: [facility] Gender: Female Note Status: Finalized Procedure: Colonoscopy Indications: Rectal pain, Patient had MUTYH gene mutation ( heterozygous). Providers: Shawn Smallwood MD Referring MD: Sheridan EDUARDO NP Requesting Provider: Medicines: Monitored Anesthesia Care Complications: No immediate complications. Procedure: Pre-Anesthesia Assessment: - Prior to the procedure, a History and Physical was performed, and patient medications and allergies were reviewed. The patient is competent. The risks and benefits of the procedure and the sedation options and risks were discussed with the patient. All questions were answered and informed consent was obtained. Patient identification and proposed procedure were verified by the physician, the nurse and the anesthesiologist in the procedure room. Mental Status Examination: alert and oriented. Airway Examination: normal oropharyngeal airway and neck mobility. Respiratory Examination: clear to auscultation. CV Examination: normal. Prophylactic Antibiotics: The patient does not require prophylactic antibiotics. Prior Anticoagulants: The patient has taken no previous anticoagulant or antiplatelet agents. ASA Grade Assessment: II - A patient with mild systemic disease. After reviewing the risks and benefits, the patient was deemed in satisfactory condition to undergo the procedure. The anesthesia plan was to use monitored anesthesia care (MAC). Immediately prior to administration of medications, the patient was re-assessed for adequacy to receive sedatives. The heart rate, respiratory rate, oxygen saturations, blood pressure, adequacy of pulmonary ventilation, and response to care were monitored throughout the procedure. The physical status of the patient was re-assessed after the procedure. The Colonoscope was introduced through the anus and advanced to the terminal ileum, with identification of the appendiceal orifice and IC valve. The colonoscopy was performed without difficulty. The patient tolerated the procedure well. The quality of the bowel preparation was good. The terminal ileum, ileocecal valve, appendiceal orifice, and rectum were photographed. Scope insertion time was 3 minutes. Scope withdrawal time was 9 minutes. The total duration of the procedure was 12 minutes. Findings: The perianal and digital rectal examinations were normal. The terminal ileum appeared normal. Non-bleeding external and internal hemorrhoids were found during retroflexion. The hemorrhoids were small. Normal mucosa was found in the entire colon. Impression: - The examined portion of the ileum was normal. - Non-bleeding external and internal hemorrhoids. - Normal mucosa in the entire examined colon. - No specimens collected. Recommendation: - Patient has a contact number available for emergencies. The signs and symptoms of potential delayed complications were discussed with the patient. Return to normal activities tomorrow. Written discharge instructions were provided to the patient. - High fiber diet. - Continue present medications. - Repeat colonoscopy in 5 years for screening purposes and due to heterozygous MUTYH gene mutation,. - Return to GI clinic in 5 years. - Return to primary care physician. Shawn Smallwood MD Shawn Smallwood MD 04/13/2019 1:16:05 PM Electronically signed by Shawn Smallwood MD Number of Addenda: 0 Note Initiated On: 04/13/2019 11:48 AM Estimated Blood Loss: Estimated blood loss was minimal.
[2019-04-13 13:20] VITALS: BP 127/69
== END 2019-04-13 13:32 | disposition home or self-care (01) ==
LOC: M OPP 10:14
PROVIDERS: ATTEND Internal Medicine Gastroenterology
DX: K64.8 Other hemorrhoids (principal); K62.89 Other specified diseases of anus and rectum; K22.8 Other specified diseases of esophagus; K29.70 Gastritis, unspecified, without bleeding; R10.13 Epigastric pain; R13.10 Dysphagia, unspecified; Z79.899 Other long term (current) drug therapy; Z88.0 Allergy status to penicillin; Z88.2 Allergy status to sulfonamides; Z88.8 Allergy status to other drugs, medicaments and biological substances; Z87.891 Personal history of nicotine dependence
CPT/HCPCS: 43239; 45378; 88305; J3010

== ENCOUNTER → 2019-05-25 | Outpatient (REF) | payer OTHER ==
[~2019-05-25] MED LIST changes: -NS 1,000 ML IV ONE
== END ==
LOC: M LAB REF 09:39
PROVIDERS: ATTEND Dermatology
DX: R21 Rash and other nonspecific skin eruption (principal)

== ENCOUNTER → 2019-06-09 | Outpatient (CLI) | payer OTHER ==
--- NOTE | 2019-06-09 16:25 | REPMRS ---
Patient History The patient states she has not had a clinical breast exam in over a year. Family history of breast cancer in maternal aunt. Reductions of both breasts, May 15, 2017. Benign excisional biopsy of the left breast. Taking hormonal contraceptives for 9 years. Digital Woman Screen Mammo: June 09, 2019 - Exam #: [id number] Bilateral CC and MLO view(s) were taken. Technologist: Ann Santos, Technologist Prior study comparison: September 11, 2016, digital woman screen mammo performed at [facility]. 2013, bilateral mammogram, performed at [facility]. 2011, bilateral mammogram, performed at [facility]. FINDINGS: The breast tissue is almost entirely fat. The patient has undergone bilateral breast reduction surgery in the interval since the 2015 prior exam. There are lobulated areas of postoperative fat necrosis seen on the right. There has been no other change in the appearance of the mammogram from the prior studies. There is no other interval development of dominant mass, architectural distortion, or grouped microcalcification typical of malignancy. 3-D tomosynthesis shows no additional findings. Assessment: BI-RADS/ACR category 2 mammogram. Benign Findings. Recommendation Routine screening mammogram of both breasts in 1 year (for women over age 40). This patient's Lifetime Breast Cancer RIsk is estimated at 12.2 %. This mammogram was interpreted with the aid of an FDA-approved computer-aided dectection system. Electronically Signed By: Duncan Rosales MD 06/09/19 [id number]
== END ==
LOC: M WHC 15:11
PROVIDERS: ATTEND Nurse Practitioner Adult Health
DX: Z12.31 Encounter for screening mammogram for malignant neoplasm of breast (principal); Z80.3 Family history of malignant neoplasm of breast

== ENCOUNTER → 2019-06-29 | Outpatient (REF) | payer OTHER | LOC: M SFHCPLAZ 13:52 | PROVIDERS: ATTEND Dermatology | DX: R21 Rash and other nonspecific skin eruption (principal) ==

== ENCOUNTER → 2019-08-18 | Outpatient (REF) | payer OTHER ==
[~2019-08-18] MED LIST changes: -OMEP40CA2 PO; +OMEP40CA97 PO
[2019-08-18 15:49] LABS: HEMATOCRIT 39.1 % (36.0-47.0); MEAN CORPUSCULAR HEMOGLOBIN 32.2 pg (27.0-33.0); MEAN CORPUSCULAR HGB CONC 33.2 g/dl (32.0-36.5); MEAN CORPUSCULAR VOLUME 96.8 fl (80.0-96.0); PLATELET COUNT, AUTOMATED 255 10^3/uL (150-450); RED BLOOD COUNT 4.04 10^6/uL (4.00-5.40); WHITE BLOOD COUNT 8.4 10^3/uL (4.0-10.0)
[2019-08-18 16:21] LABS: ALBUMIN 3.5 GM/DL (3.2-5.2); ALT/SGPT 51 U/L (12-78); BILIRUBIN,TOTAL 0.4 MG/DL (0.2-1.0); BLOOD UREA NITROGEN 11 MG/DL (7-18); CALCIUM LEVEL 9.3 MG/DL (8.5-10.1); CARBON DIOXIDE LEVEL 30 MEQ/L (21-32); CHLORIDE LEVEL 101 MEQ/L (98-107); CHOLESTEROL LEVEL 176 MG/DL (<200); CHOLESTEROL RISK RATIO 2.793 (<5); CREATININE FOR GFR 0.57 MG/DL (0.55-1.30); GLOMERULAR FILTRATION RATE > 60.0 (>58); GLUCOSE, FASTING 89 MG/DL (70-100); HDL CHOLESTEROL 63 MG/DL (>40); LDL CHOLESTEROL 72 MG/DL (<100); NON-HDL-C 113 MG/DL; POTASSIUM SERUM 4.5 MEQ/L (3.5-5.1); SODIUM LEVEL 139 MEQ/L (136-145); THYROID STIMULATING HORMONE 0.288 uIU/ML (0.358-3.740); TOTAL PROTEIN 6.8 GM/DL (6.4-8.2); TRIGLYCERIDES LEVEL 203 MG/DL (<150)
[2019-08-18 16:30] LABS: CORTISOL BASELINE 5.1 UG/DL (4.3-22.4); TOTAL 25(OH) VITAMIN D 41.8 NG/ML (30.0-100.0)
== END ==
LOC: M SFHCPLAZ 14:22
PROVIDERS: ATTEND Nurse Practitioner Adult Health
DX: E03.9 Hypothyroidism, unspecified (principal); M79.7 Fibromyalgia; E55.9 Vitamin D deficiency, unspecified; L66.1 Lichen planopilaris; E78.2 Mixed hyperlipidemia

== ENCOUNTER → 2019-08-27 | Outpatient (CLI) | payer OTHER | LOC: M LAB 08:25 | PROVIDERS: ATTEND Allergy & Immunology Allergy | DX: T78.1XXA Other adverse food reactions, not elsewhere classified, initial encounter (principal); X58.XXXA Exposure to other specified factors, initial encounter; Y92.89 Other specified places as the place of occurrence of the external cause ==

== ENCOUNTER 2019-09-02 12:42 | Outpatient (RCR) | payer OTHER | END 2019-09-05 | LOC: M PT 12:42 | PROVIDERS: ATTEND Dermatology | DX: L66.1 Lichen planopilaris (principal) ==

== ENCOUNTER 2019-09-11 13:15 | Outpatient (RCR) | payer OTHER | END 2019-10-06 | LOC: M PT 13:15 | PROVIDERS: ATTEND Dermatology | DX: L66.1 Lichen planopilaris (principal) ==